=== PATIENT | male | born 1990 | race African-American/Black ===

== ENCOUNTER 2017-09-05 15:44 | Emergency (ER) | payer MEDICAID, SELFPAY ==
--- NOTE | 2017-09-05 16:23 | DT_ITS ---
This patient was seen during an EMR downtime September 03, 2017 - September 10, 2017. This patient may have a combination of paper and electronic documentation or all paper documentation. All documentation is viewable within the e-chart portion of [employer] for each patient visit.
--- NOTE | 2017-09-05 16:38 | RAD_ITS ---
STUDY: X-RAY CHEST REASON FOR EXAM: Male, 27 years old. Shortness of breath TECHNIQUE: PA and lateral views of the chest. This study dated September 05, 2017 on the emergency room is presented for interpretation September 11, 2017. COMPARISON: Comparison is from the same day September 05, 2017 FINDINGS: There are patchy left lower and lingular opacities. There is no demonstrated pleural abnormality. Normal size heart. Normal mediastinum and alban. Normal visualized pulmonary arteries. Normal visualized aortic arch and descending thoracic aorta. Normal visualized thoracic spine. Normal visualized ribs, clavicles, and shoulders. There is no demonstrated abnormality of the visualized soft tissue structures of the upper abdomen. RAD/Chest PA and Lateral IMPRESSION: Patchy lingular and left lower lobe opacities. The CT chest performed September 05, 2017 shows that this likely represents pneumonia. Recommend follow-up to clearing. Electronically Signed: Zoe Gilliland MD at 13:10 EDT Tel , Service support ,
--- NOTE | 2017-09-05 18:40 | CT_ITS ---
STUDY: CTA CHEST REASON FOR EXAM: Male, 27 years old. Left-sided chest pain with pneumonia and shortness of breath. RADIATION DOSAGE (If Supplied By Facility): CTDIvol = ( 4.85 ) mGy, DLP = ( 211.57 ) mGycm TECHNIQUE: The examination was performed with the intravenous administration of 100 ml of Isovue 370 contrast material. Post-processing of the angiographic images was performed, with multiplanar reformation and 3D reconstruction. Individualized dose optimization techniques were used for this CT. COMPARISON: None. FINDINGS: Normal enhancement of the main pulmonary artery and right and left pulmonary arteries. There is limited enhancement of the bilateral peripheral pulmonary arteries. There is no demonstrated pulmonary embolism. Normal thoracic aorta and visualized great vessels. There is no demonstrated aortic dissection. Normal heart and pericardium. Normal mediastinum. Normal hilar regions. Normal visualized trachea and bronchi. The lungs are hyper expanded, with flattening of the hemidiaphragms. There is patchy lingular and left lower lobe airspace disease possibly representing pneumonia. Right lung appears to be clear. Normal pleura. Normal chest wall structures. Normal osseous structures. Normal visualized upper abdomen. CT/Chest W/WO Contrast IMPRESSION: 1. No CTA demonstrated pulmonary embolism or arterial dissection. 2. Patchy lingular and left lower lobe airspace consolidation likely representing pneumonia. Electronically Signed: Katelynn Harrell MD at 6:53 EDT , Service support ,
[2017-09-08 09:18] LABS: Basophil% 0.1 % (0-1); Eosinophils% 0.5 % (0-5); Hematocrit 44.7 % (40-54); Hemoglobin 14.8 g/dl (13.0-16.5); Lymphocyte % 21.7 % (19-41); Mean Corp Hgb Conc 33.1 g/gl (32-36); Mean Corpuscular Hgb 30.7 pg (27.0-32.0); Mean Corpuscular Volume 92.7 fL (80-94); Mean Platelet Vol. 9.4 fl (6.2-12.0); Monocyte% 9.7 % (0-10); Neutrophil % 67.9 % (47-70); POSITIVE COUNT NO; POSITIVE DIFFERENTIAL NO; POSITIVE MORPHOLOGY NO; Platelet Count 239 K/mm3 (150-450); RBC Distribution Width CV 14.1 % (11.6-14.6); RBC Distribution Width SD 47.8 fl (35.1-43.9); Red Blood Count 4.82 M/mm3 (4.6-6.2); White Blood Count 7.5 K/mm3 (4.4-11.0)
[2017-09-08 09:19] LABS: Absolute Lymphocyte Count 1.63 X10^3/ul (0.83-4.51); Absolute Neutrophil Count 5.1 X10^3/uL (2.0-7.7); Basophil# 0.01 X10^3/uL; Eosinophil# 0.04 X10^3/uL; Lymphocyte # 1.63 X10^3/ul (4.0); Monocyte# 0.73 X10^3/uL; Neutrophil # 5.09 X10^3/uL (2.7-7.7)
== END 2017-09-05 20:07 | disposition home or self-care (01) ==
PROVIDERS: Emergency Provider Emergency Medicine
DX: J18.9 Pneumonia, unspecified organism (principal); F17.210 Nicotine dependence, cigarettes, uncomplicated
CPT/HCPCS: 71046; 71270; 85025; 94640; 99284; Q9967; A4216

== ENCOUNTER 2017-09-06 20:30 | Emergency (ER) | payer MEDICAID, SELFPAY ==
--- NOTE | 2017-09-06 20:30 | DT_ITS ---
This patient was seen during an EMR downtime September 03, 2017 - September 10, 2017. This patient may have a combination of paper and electronic documentation or all paper documentation. All documentation is viewable within the e-chart portion of [employer] for each patient visit.
== END 2017-09-06 20:40 | disposition home or self-care (01) ==
PROVIDERS: Emergency Provider Emergency Medicine
DX: R10.9 Unspecified abdominal pain (principal); R06.09 Other forms of dyspnea; J18.9 Pneumonia, unspecified organism; F17.200 Nicotine dependence, unspecified, uncomplicated
CPT/HCPCS: 99282

== ENCOUNTER 2017-09-09 12:20 | Emergency (ER) | payer MEDICAID, SELFPAY ==
--- NOTE | 2017-09-09 12:20 | DT_ITS ---
This patient was seen during an EMR downtime September 03, 2017 - September 10, 2017. This patient may have a combination of paper and electronic documentation or all paper documentation. All documentation is viewable within the e-chart portion of [employer] for each patient visit.
[2017-09-11 08:29] LABS: Anion Gap 7 (5-15); BUN 11 mg/dL (7-18); BUN/Creat Ratio 9.2 RATIO (10-20); Calcium,Total 9.4 mg/dL (8.5-10.1); Chloride 105 mmol/L (98-107); EST Glomerular Filtration Rate 76 mL/min (>60); Est Glom Filt Rate - Afr Amer 92 mL/min (>60); Glucose 81 mg/dL (74-106); Lipase 140 U/L (73-393); Potassium 3.8 mmol/L (3.5-5.1); Sodium Level 144 mmol/L (136-145)
[2017-09-11 08:30] LABS: Alcohol, Blood (Medical)-Serum < 3.0 mg/dL
[2017-09-11 08:31] LABS: Amphetamine Urine VISTA NEGATIVE (<1000 ng/mL); Barbiturate Urine VISTA NEGATIVE (< 200 ng/mL); Benzodiazepine Urine VISTA NEGATIVE (< 200 ng/mL); Cocaine Urine VISTA POSITIVE (< 300 ng/mL); Ecstacy Urine VISTA NEGATIVE (< 500 ng/mL); Methadone Urine VISTA NEGATIVE (< 300 ng/mL); PCP Urine VISTA NEGATIVE (< 25 ng/mL); THC Urine VISTA POSITIVE (< 50 ng/mL); Vista UDS pH Range 6
[2017-09-11 11:07] LABS: Hematocrit 50.3 % (40-54); Hemoglobin 16.6 g/dl (13.0-16.5); Red Blood Count 5.39 M/mm3 (4.6-6.2); White Blood Count 2.4 K/mm3 (4.4-11.0)
[2017-09-11 11:08] LABS: Absolute Lymphocyte Count 1.06 X10^3/ul (0.83-4.51); Absolute Neutrophil Count 0.9 X10^3/uL (2.0-7.7); Basophil# 0.01 X10^3/uL; Basophil% 0.4 % (0-1); Eosinophil# 0.23 X10^3/uL; Eosinophils% 9.6 % (0-5); Lymphocyte # 1.06 X10^3/ul (4.0); Lymphocyte % 44.2 % (19-41); Mean Corpuscular Hgb 30.8 pg (27.0-32.0); Mean Corpuscular Volume 93.3 fL (80-94); Mean Platelet Vol. 9.1 fl (6.2-12.0); Monocyte# 0.23 X10^3/uL; Monocyte% 9.6 % (0-10); Neutrophil # 0.86 X10^3/uL (2.7-7.7); Neutrophil % 35.8 % (47-70); POSITIVE COUNT NO; POSITIVE DIFFERENTIAL NO; POSITIVE MORPHOLOGY NO; Platelet Count 235 K/mm3 (150-450); RBC Distribution Width CV 14.1 % (11.6-14.6); RBC Distribution Width SD 47.1 fl (35.1-43.9)
[2017-09-11 12:14] LABS: Red Blood Cells-Urine 0 SEEN /hpf (0-5); White Blood Cells 0 SEEN /hpf (0-5)
[2017-09-11 13:18] LABS: Bacteria RARE /hpf (None Seen); Color, Urine Yellow (Yellow); Glucose, Dipstick NEGATIVE (Normal); Ketone-Dipstick Negative (Negative); Leukocyte Esterase-Dipstick Negative /ul (Negative); Mucous, Urine 1+ /hpf (<or=2+); Nitrite-Dipstick Negative (Negative); Occult Blood-Urine Negative /ul (Negative); Protein-Dipstick Negative (Negative); Specific Gravity, Urine 1.015 (1.002-1.030); Squamous Epithelial Cells - UA 0-5 SEEN /hpf (0-5); Urine Bilirubin Dipstick Negative (Negative); Urine Clarity Clear (Clear); Urine Urobilinogen Normal (Normal); Urine pH 6.5 (5.0 - 8.0)
== END 2017-09-09 17:00 | disposition home or self-care (01) ==
LOC: ED 09-10 07:30
PROVIDERS: Emergency Provider Emergency Medicine
DX: R45.87 Impulsiveness (principal); F14.10 Cocaine abuse, uncomplicated; F11.10 Opioid abuse, uncomplicated; F12.10 Cannabis abuse, uncomplicated; R45.851 Suicidal ideations; Z87.891 Personal history of nicotine dependence
CPT/HCPCS: 36415; 80048; 80307; 80320; 81001; 83690; 85025; 99284; G0480

== ENCOUNTER 2017-09-14 08:12 | Emergency (ER) | payer MEDICAID, SELFPAY ==
[2017-09-14 08:12] VITALS: BP 165/70; PULSE 88; RESP 20; TEMP 36; O2SAT 100; BMI 20.9
--- NOTE | 2017-09-14 08:24 | RAD_ITS ---
STUDY: X-RAY CHEST REASON FOR EXAM: Male, 27 years old. Fever and shortness of breath. TECHNIQUE: Frontal and lateral views of the chest. COMPARISON: 09/05/2017. FINDINGS: Normal lung volumes. Very minimal residual atelectasis or infiltrate remains in the anterior left lung base. No effusions. Normal size heart. Normal mediastinum and alban. Normal visualized pulmonary arteries. Normal visualized aortic arch and descending thoracic aorta. Normal visualized thoracic spine. Normal visualized ribs, clavicles, and shoulders. There is no demonstrated abnormality of the visualized soft tissue structures of the upper abdomen. RAD/Chest PA and Lateral IMPRESSION: Very minimal residual atelectasis or infiltrate remains in the anterior left lung base. Electronically Signed: Johnson Brasher MD at 10:01 EDT , Service support ,
--- NOTE | 2017-09-14 08:30 | ED.DCSUM_ITS ---
- ER Visit Summary Date of Service: 09/14/17 Chief Complaint: Shortness of breath History of Present Illness: The patient is a 27 M [place] to the emergency department with shortness of breath. The patient was recently diagnosed with pneumonia. He finished treatment with azithromycin. He has had no further fever or chills. He states from time to time, he will feel more short of breath. He has had a scant cough. He states he was driving today and felt short of breath. He has no underlying history of lung disease. He does occasionally smoke. He has had no chest pain. He denies orthopnea. He denies other systemic symptoms. Physical Examination: Vital signs reviewed General: Well-nourished, well-developed Head: Normocephalic, atraumatic Eyes: Pupils equal and reactive, extraocular muscles intact Neck, supple, no lymphadenopathy Heart: Regular rate and rhythm Respiratory: No distress, clear bilaterally Abdomen: Soft, nontender, nondistended, no peritoneal signs Back: Nontender Extremities: Nontender, no edema, no cords Skin: Normal color no rash Neuro: Alert and oriented, no focal or lateralizing deficits Test Results: [] Emergency Department Course and Treatment: The patient is not hypoxic or tachypneic. He really has no focal change in lung sounds. I did give him a nebulized treatment with improvement of his symptoms. His x-ray shows almost total resolution of his pneumonia. I do feel he likely has some persistent inflammation. I am going to place the patient on a prednisone burst and prescribe him an albuterol inhaler. At this time, I do feel that he is safe for outpatient therapy. Treatment Plan: [] Disposition: Discharge Impression:. Bronchospasm This note was generated with [employer] dictation software. It may contain incorrect words, spelling, and punctuation that were not noted in review of the chart prior to signing ED Disposition - Plan for ED Patient: Chief Complaint: Shortness of Breath Instructions: ED Upper Resp Infec No Abx Tx Prescriptions: Albuterol Inhaler [Ventolin Hfa] 1 - 2 puff INHALATION Q4H PRN PRN #1 inhaler PRN Reason: Wheezing Prednisone 10 mg PO UD #33 tab Referrals: Care Physician,No Primary [Primary Care Provider] -
[2017-09-14 08:39] VITALS: PULSE 88; RESP 18
[2017-09-14] MEDS: Ipratropium/Albuterol Sulfate 3 ML AMPUL.NEB INHALATION (08:39)
[2017-09-14 09:43] VITALS: PULSE 89; RESP 16; O2SAT 99
== END 2017-09-14 09:44 | disposition home or self-care (01) ==
LOC: ED 08:31
PROVIDERS: Emergency Provider Emergency Medicine
DX: J98.01 Acute bronchospasm (principal); Z87.891 Personal history of nicotine dependence; Z87.01 Personal history of pneumonia (recurrent)
CPT/HCPCS: 71046; 94640; 99282

== ENCOUNTER 2017-09-17 14:18 | Emergency (ER) | payer MEDICAID, SELFPAY ==
[2017-09-17 14:20] VITALS: BP 126/55; PULSE 62; RESP 18; TEMP 36.7; O2SAT 100; BMI 20.9
== END 2017-09-17 14:45 | disposition left against medical advice (07) ==
LOC: ED 14:38
PROVIDERS: Emergency Provider Emergency Medicine
DX: R06.02 Shortness of breath (principal)

== ENCOUNTER 2018-05-08 20:54 | Emergency (ER) | payer MEDICAID, SELFPAY ==
[2018-05-08 20:55] VITALS: BP 122/69; PULSE 71; RESP 14; TEMP 36.3; O2SAT 98; BMI 22.8
--- NOTE | 2018-05-08 21:35 | RAD_ITS ---
STUDY: X-RAY CHEST REASON FOR EXAM: Male, 28 years old. Shortness of breath TECHNIQUE: Frontal and lateral views COMPARISON: September 14, 2017 FINDINGS: The lungs are clear and expanded. There is no demonstrated pleural abnormality. Normal size heart. Normal mediastinum and alban. Normal visualized pulmonary arteries. Normal visualized aortic arch and descending thoracic aorta. Normal visualized thoracic spine. Normal visualized ribs, clavicles, and shoulders. There is no demonstrated abnormality of the visualized soft tissue structures of the upper abdomen. RAD/Chest PA and Lateral IMPRESSION: Normal x-ray examination of the chest. Electronically Signed: Mazin Ferrell DO at 21:51 EST Tel [phone], Service support ,
--- NOTE | 2018-05-08 21:58 | ED.DCSUM_ITS ---
- ER Visit Summary Date of Service: 05/08/18 Chief Complaint: Shortness of breath History of Present Illness: The patient is a 28 M with no primary care physician. He reports that shortness of breath began 2 weeks ago and is gradually gotten worse. Is mild currently in moderate at worst. States is worsened with exertion. States this is similar to when he had pneumonia. However, he denies any fever or chills. No cough. He denies any chest pain or other complaints. Physical Examination: Vitals: Stable. Afebrile. General: Well-nourished and well-developed. Head: Normocephalic atraumatic. Neck: Supple, no lymphadenopathy. No JVD. Nontender. Cardiovascular: Regular rate and rhythm. No murmurs. Respiratory: No respiratory distress. Clear to auscultation bilaterally. Abdominal: Soft, nontender, nondistended, normal bowel sounds. No guarding, rebound, or peritoneal signs. Back: Nontender. Extremities: Nontender, no edema. Skin: Normal color, no rash. Neurologic: Alert and oriented ?3. Cranial nerves II through XII are intact. Normal strength and sensation. Psych: Normal affect. Test Results: Chest x-ray is normal. Emergency Department Course and Treatment: Patient is resting comfortably. He was reassured. Treatment Plan: Patient be discharged instructions follow-up the [facility] in 3-5 days if not improving. Return to the emergency department for any worsening symptoms. Disposition: To home in improved and stable condition. Impression: 1. Dyspnea, uncertain cause. This note was generated with [employer] dictation software. It may contain incorrect words, spelling, and punctuation that were not noted in review of the chart prior to signing ED Disposition - Plan for ED Patient: Instructions: ED Dyspnea Shortness of Breath Referrals: Helena Carroll [NON-STAFF] - 3-5 Days if not improving
== END 2018-05-08 22:15 | disposition home or self-care (01) ==
LOC: ED 21:30
PROVIDERS: Emergency Provider Emergency Medicine
DX: R06.00 Dyspnea, unspecified (principal); F17.210 Nicotine dependence, cigarettes, uncomplicated; Z87.01 Personal history of pneumonia (recurrent)
CPT/HCPCS: 71046; 99282

== ENCOUNTER 2018-06-24 05:57 | Emergency (ER) | payer MEDICAID, SELFPAY ==
[2018-06-24 05:57] VITALS: BP 137/87; PULSE 78; RESP 16; TEMP 37; O2SAT 98; BMI 21.7
[2018-06-24 06:02] VITALS: RESP 16
--- NOTE | 2018-06-24 07:11 | ED.VIS.GEN ---
History of Present Illness Chief Complaint: Laceration Narrative: Presents with injury to his right middle and little fingers. 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 Tetanus is up-to-date. Current severity is mild. He is having difficulty bending his fifth finger however. Denies any numbness or tingling. Current severity is mild. No other injuries. Past Medical History - Allergies and Home Meds Allergies/Adverse Reactions: Allergies No Known Allergies Allergy (Verified 06/24/18 06:02) Prior records reviewed: Yes Past Medical History: - - reviewed Surgical History: noncontributory Smoking Status: Current every day smoker Alcohol: None Drugs: None Review of Systems General: Denies: Chills, Fever, Sweats Eyes: Denies: Visual changes - bilaterally, Diplopia ENT: Denies: Rhinorrhea, Sore throat Cardiovascular: Denies: Chest pain, Palpitations Respiratory: Denies: Dyspnea, Cough, Dyspnea on exertion Gastrointestinal: Denies: Abdominal pain, Nausea, Vomiting, Diarrhea, Melena, Hematochezia Genitourinary: Denies: Dysuria, Hematuria, Frequency Musculoskeletal: Denies: Back pain, Extremity Pain Skin: Reports: Wounds. Denies: Rash Neurological: Denies: Headache, Weakness, Numbness Physical Exam Vital Signs/Narrative: Vital Signs Temp Pulse Resp BP Pulse Ox 06/24/18 06:02 16 06/24/18 05:57 98.6 F 78 16 137/87 H 98 General: Well nourished, Well developed, No Acute Distress Head: Normocephalic, Atraumatic Eyes: Perrl, EOMI ENT: Moist mucous membranes, No rhinorrhea Neck: Supple, Nontender Cardiovascular: Regular rate, Regular rhythm, No murmurs Respiratory: No distress, CTA bilaterally, Chest nontender Abdomen: Soft, Nontender, Nondistended, Normal bowel sounds Back: Nontender, Normal Inspection Extremities: No edema, Tenderness, - - Has a 1.5 cm laceration over the middle phalanx of his right long finger on the volar aspect superficial enough that I cannot see the tendon in a bloodless fieldPatient has a 1 cm laceration of the middle phalanx volar of the right little finger. He is unable to flex it. However the laceration is very superficial.. Negative for: Nontender Skin: Normal color, No rash, Trauma Neurological: Alert, Oriented x3, Cranial nerves II-XII grossly intact, Normal Strength, Normal Sensation Psychological: Normal affect, Normal Mood Diagnostic/Tx/Re-eval - Medical Decision Making Consented to treatment. His wound was washed with chlorhexidine. It was anesthetized with 5 cc of 1% lidocaine. Turnicot was placed on his fingers. I could not see any tendon rupture. Each wound was washed with 500 cc of saline and closed with simple suture x3 per finger. Bacitracin was applied. I discussed the case with Dr. Harrell dated that they do not do flexor tendon repair and that the patient will get a referral to [facility] in [place]. I have concerns that he has a flexor tendon injury to his little finger. We will follow-up as an outpatient for suture removal as well. ED Disposition - Plan for ED Patient: Diagnosis: Finger laceration involving tendon, Finger laceration Instructions: ED Laceration Hand, ED Laceration Tendon Additional Instructions: Please follow with Dr. Stanley in [place] orthopedic hand doctor
--- NOTE | 2018-06-24 07:16 | ED.DCSUM_ITS ---
History of Present Illness Chief Complaint: Laceration Narrative: Presents with injury to his right middle and little fingers. 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 Tetanus is up-to-date. Current severity is mild. He is having difficulty bending his fifth finger however. Denies any numbness or tingling. Current severity is mild. No other injuries. Past Medical History - Allergies and Home Meds Allergies/Adverse Reactions: Allergies No Known Allergies Allergy (Verified 06/24/18 06:02) Prior records reviewed: Yes Past Medical History: - - reviewed Surgical History: noncontributory Smoking Status: Current every day smoker Alcohol: None Drugs: None Review of Systems General: Denies: Chills, Fever, Sweats Eyes: Denies: Visual changes - bilaterally, Diplopia ENT: Denies: Rhinorrhea, Sore throat Cardiovascular: Denies: Chest pain, Palpitations Respiratory: Denies: Dyspnea, Cough, Dyspnea on exertion Gastrointestinal: Denies: Abdominal pain, Nausea, Vomiting, Diarrhea, Melena, Hematochezia Genitourinary: Denies: Dysuria, Hematuria, Frequency Musculoskeletal: Denies: Back pain, Extremity Pain Skin: Reports: Wounds. Denies: Rash Neurological: Denies: Headache, Weakness, Numbness Physical Exam Vital Signs/Narrative: Vital Signs Temp Pulse Resp BP Pulse Ox 06/24/18 06:02 16 06/24/18 05:57 98.6 F 78 16 137/87 H 98 General: Well nourished, Well developed, No Acute Distress Head: Normocephalic, Atraumatic Eyes: Perrl, EOMI ENT: Moist mucous membranes, No rhinorrhea Neck: Supple, Nontender Cardiovascular: Regular rate, Regular rhythm, No murmurs Respiratory: No distress, CTA bilaterally, Chest nontender Abdomen: Soft, Nontender, Nondistended, Normal bowel sounds Back: Nontender, Normal Inspection Extremities: No edema, Tenderness, - - Has a 1.5 cm laceration over the middle phalanx of his right long finger on the volar aspect superficial enough that I cannot see the tendon in a bloodless fieldPatient has a 1 cm laceration of the middle phalanx volar of the right little finger. He is unable to flex it. However the laceration is very superficial.. Negative for: Nontender Skin: Normal color, No rash, Trauma Neurological: Alert, Oriented x3, Cranial nerves II-XII grossly intact, Normal Strength, Normal Sensation Psychological: Normal affect, Normal Mood Diagnostic/Tx/Re-eval - Medical Decision Making Consented to treatment. His wound was washed with chlorhexidine. It was anesthetized with 5 cc of 1% lidocaine. Turnicot was placed on his fingers. I could not see any tendon rupture. Each wound was washed with 500 cc of saline and closed with simple suture x3 per finger. Bacitracin was applied. I discussed the case with Dr. Harrell dated that they do not do flexor tendon repair and that the patient will get a referral to [facility] in [place]. I have concerns that he has a flexor tendon injury to his little finger. We will follow-up as an outpatient for suture removal as well. ED Disposition - Plan for ED Patient: Diagnosis: Finger laceration involving tendon, Finger laceration Instructions: ED Laceration Hand, ED Laceration Tendon Additional Instructions: Please follow with Dr. Stanley in [place] orthopedic hand doctor
[2018-06-24 07:22] VITALS: BP 124/67; PULSE 59; RESP 16; O2SAT 98
== END 2018-06-24 07:22 ==
PROVIDERS: Emergency Provider Emergency Medicine
DX: S66.126A Laceration of flexor muscle, fascia and tendon of right little finger at wrist and hand level, initial encounter (principal); S61.210A Laceration without foreign body of right index finger without damage to nail, initial encounter; S61.212A Laceration without foreign body of right middle finger without damage to nail, initial encounter; W26.0XXA Contact with knife, initial encounter; Y93.9 Activity, unspecified; Y92.9 Unspecified place or not applicable; Y99.9 Unspecified external cause status; F17.200 Nicotine dependence, unspecified, uncomplicated
CPT/HCPCS: 12001; 99283

== ENCOUNTER 2018-06-29 22:58 | Emergency (ER) | payer MEDICAID, SELFPAY ==
[2018-06-29 22:59] VITALS: BP 135/85; PULSE 74; RESP 16; TEMP 36.1; O2SAT 99; BMI 21.6
--- NOTE | 2018-06-29 23:38 | ED.VISSUMM ---
- ER Visit Summary Date of Service: 06/29/18 Chief Complaint: Anal itching History of Present Illness: The patient is a 28 M who presents for 1 month of anal itching. Itching is worse during the night and after a bowel movement when wiping. Patient denies any anal sex or concern for STDs. Patient denies any blood in his stools, nausea, vomiting or abdominal pain. Patient does have history of hemorrhoids but is not treated for them. He does have cats in the house and is unsure if they may have pinworms. Patient has no other medical history other than hemorrhoids. Physical Examination: Patient is well-nourished and well-developed laying in bed in no distress. Hemodynamically stable. Afebrile. Examination of the rectal area shows multiple external hemorrhoids without any thrombosis. Tape exam shows no obvious ova. Patient had immediate itching after the rectal exam. Digital exam showed no internal masses or carlos enrique blood. Remainder of exam unremarkable. Test Results: [] Emergency Department Course and Treatment: Patient's rectal itching is most likely due to hemorrhoids. We did discuss that it is possible that pinworms it can cause itching at night, and although applying tape to the rectum did not reveal any eggs, we discussed that that is normally a test better for the morning. Because patient is having worsening of the itching after wiping and bowel movements, this does make it more likely to be hemorrhoids. He was prescribed hydrocortisone suppositories. He was given follow-up with a primary care doctor for further management. Discharge home. Treatment Plan: [] Disposition: [] Impression: External hemorrhoids with anal itching This note was generated with [employer] dictation software. It may contain incorrect words, spelling, and punctuation that were not noted in review of the chart prior to signing ED Disposition - Plan for ED Patient: Disposition: Home or Assisted Living Instructions: ED Hemorrhoids, ED Pruritus Ani Anal Itching Referrals: Bijal Vale MD [STAFF PHYSICIAN] - 3-5 Days Additional Instructions: Use the hemorrhoid suppositories as prescribed to help with anal itching. If you have any worsening of your condition or any new concerning symptoms, please return immediately to the emergency department for another evaluation.
== END 2018-06-29 23:59 | disposition home or self-care (01) ==
PROVIDERS: Emergency Provider Emergency Medicine
DX: K64.4 Residual hemorrhoidal skin tags (principal); L29.0 Pruritus ani
CPT/HCPCS: 99282